=== PATIENT | male | born 2000 | race Hispanic/Latino ===

== ENCOUNTER 2022-05-12 09:28 | Emergency (ER) | payer SELFPAY ==
[2022-05-12] MEDS ORDERED: Lidocaine 1% MPF 2 ML VIAL ONE (12:23)
[2022-05-12] MEDS ORDERED: Boostrix 0.5 ML (Tdap) VIAL ONE (12:23)
[2022-05-12] MEDS ORDERED: Bacitracin 1 PK ONE (12:50)
== END 2022-05-12 15:31 | disposition home or self-care (01) ==
LOC: ERS 09:28
DX: S61.411A Laceration without foreign body of right hand, initial encounter (principal); S61.212A Laceration without foreign body of right middle finger without damage to nail, initial encounter; F17.290 Nicotine dependence, other tobacco product, uncomplicated; W27.0XXA Contact with workbench tool, initial encounter
CPT/HCPCS: 12002; 90471; 90715